=== PATIENT | male | born 1980 | race African-American/Black ===

== ENCOUNTER 2017-07-17 06:50 | Emergency (ER) | payer SELFPAY ==
[~2017-07-17] VITALS: Ht 180.3 cm; Wt 60.0 kg
[2017-07-17 06:54] VITALS: BP 134/63; PULSE 48; RESP 16; TEMP 96.7; O2SAT 98
[2017-07-17] MEDS ORDERED: SODIUM CHLOR 0.9% 1000 ML INJ 1,000 ML IV SCH (07:19)
[2017-07-17] MEDS ORDERED: ONDANSETRON HCL 4 MG/2 ML VIAL IVP ONE (07:30)
[2017-07-17] MEDS ORDERED: SODIUM CHLORIDE 0.9% FLUSH 10 ML FLUSH IV FLUSH PRN (07:30)
[2017-07-17] MEDS ORDERED: FAMOTIDINE 20 MG/2 ML VIAL IV PUSH ONE (07:30)
[2017-07-17 07:40] VITALS: BP 129/65; PULSE 43; RESP 19; O2SAT 97
--- NOTE | 2017-07-17 07:51 | PD ---
HPI Chief Complaint: GI Complaint Time Seen by Provider: 07:19 Travel History International Travel<30 days: No Contact w/Intl Traveler<30days: No Traveled to known affect area: No History of Present Illness HPI Patient is a 36 year old male who comes in complaining of abdominal pain with nausea and vomiting. He says it started at 2:30AM. He says he has "ulcers." He denies seeing any blood in his vomit. He says he is having normal bowel movements. He denies fever or chills. He says he has pain to the middle of his abdomen. He denies any issues with urination. He denies alcohol use. He cannot remember the last thing he ate. He denies any sick contacts. [facility] Past Medical History Medical History: Denies Significant Hx Blood Disorders: No Cancer: No Cardiovascular Problems: No Diminished Hearing: No Endocrine: No Genitourinary: No Immune Disorder: No Musculoskeletal: No Neurologic: No Psychiatric: No Reproductive: No Respiratory: No Past Surgical History Surgical History: No Previous Surgery AICD: No Arteriovenous Shunt: No Insulin Pump: No Joint Replacement: No Pacemaker: No Other Surgery: Yes (HERNIA) Social History Alcohol Use: Yes (socially) Tobacco Use: Yes (1/2 PPD) Substance Use: No Allergies-Medications (Allergen,Severity, Reaction): Coded Allergies: No Known Allergies (Verified , 04/29/15) Reported Meds & Prescriptions Reported Meds & Active Scripts Active No Active Prescriptions or Reported Medications Review of Systems Except as stated in HPI: all other systems reviewed are Neg General / Constitutional: No: Fever HENT: No: Headaches, Lightheadedness Cardiovascular: No: Chest Pain or Discomfort Respiratory: No: Shortness of Breath Gastrointestinal: Positive: Nausea, Vomiting, Abdominal Pain, No: Diarrhea Genitourinary: No: Dysuria Musculoskeletal: No: Myalgias, Weakness Skin: No Rash, No Change in Pigmentation Neurologic: No: Weakness, Dizziness Physical Exam Narrative GENERAL: Awake and alert, in no acute distress. SKIN: Focused skin assessment warm/dry. HEAD: Atraumatic. Normocephalic. EYES: Pupils equal and round. No scleral icterus. ENT: Mucous membranes pink and moist. NECK: Trachea midline. No JVD. CARDIOVASCULAR: Regular rate and rhythm. No murmur appreciated. RESPIRATORY: No accessory muscle use. Clear to auscultation. Breath sounds equal bilaterally. GASTROINTESTINAL: Abdomen soft, nondistended. Tender to palpation of the epigastric area. No rebound or guarding. MUSCULOSKELETAL: No obvious deformities. No clubbing. No cyanosis. No edema. NEUROLOGICAL: Awake and alert. No obvious cranial nerve deficits. Motor grossly within normal limits. Normal speech. PSYCHIATRIC: Appropriate mood and affect; insight and judgment normal. Data Data Last Documented VS Vital Signs Date Time Temp Pulse Resp B/P (MAP) Pulse Ox O2 Delivery O2 Flow Rate FiO2 07/17/17 07:40 43 19 129/65 (86) 97 Room Air 07/17/17 06:54 96.7 Orders Orders Complete Blood Count With Diff (07/17/17 07:19) Comprehensive Metabolic Panel (07/17/17 07:19) Lipase (07/17/17 07:19) Urinalysis - C+S If Indicated (07/17/17 07:19) Iv Access Insert/Monitor (07/17/17 07:19) Ecg Monitoring (07/17/17 07:19) Oximetry (07/17/17 07:19) Ondansetron Inj (Zofran Inj) (07/17/17 07:30) Sodium Chlor 0.9% 1000 Ml Inj (Ns 1000 M (07/17/17 07:19) Sodium Chloride 0.9% Flush (Ns Flush) (07/17/17 07:30) Famotidine Inj (Pepcid Inj) (07/17/17 07:30) Metoclopramide Inj (Reglan Inj) (07/17/17 08:15) Ct Abd/Pel W Iv Contrast(Rout) (07/17/17 ) Diphenhydramine Inj (Benadryl Inj) (07/17/17 09:00) Iohexol 350 Inj (Omnipaque 350 Inj) (07/17/17 09:44) Labs Laboratory Tests Test 07/17/17 07:30 07/17/17 10:00 White Blood Count 12.7 TH/MM3 Red Blood Count 4.42 MIL/MM3 Hemoglobin 14.5 GM/DL Hematocrit 43.8 % Mean Corpuscular Volume 99.3 FL Mean Corpuscular Hemoglobin 32.8 PG Mean Corpuscular Hemoglobin Concent 33.1 % Red Cell Distribution Width 14.1 % Platelet Count 287 TH/MM3 Mean Platelet Volume 9.0 FL Neutrophils (%) (Auto) 78.4 % Lymphocytes (%) (Auto) 13.9 % Monocytes (%) (Auto) 6.1 % Eosinophils (%) (Auto) 0.9 % Basophils (%) (Auto) 0.7 % Neutrophils # (Auto) 9.9 TH/MM3 Lymphocytes # (Auto) 1.8 TH/MM3 Monocytes # (Auto) 0.8 TH/MM3 Eosinophils # (Auto) 0.1 TH/MM3 Basophils # (Auto) 0.1 TH/MM3 CBC Comment DIFF FINAL Differential Comment Blood Urea Nitrogen 10 MG/DL Creatinine 1.16 MG/DL Random Glucose 168 MG/DL Total Protein 7.6 GM/DL Albumin 3.8 GM/DL Calcium Level 9.7 MG/DL Alkaline Phosphatase 58 U/L Aspartate Amino Transf (AST/SGOT) 27 U/L Alanine Aminotransferase (ALT/SGPT) 23 U/L Total Bilirubin 0.3 MG/DL Sodium Level 143 MEQ/L Potassium Level 4.0 MEQ/L Chloride Level 107 MEQ/L Carbon Dioxide Level 29.0 MEQ/L Anion Gap 7 MEQ/L Estimat Glomerular Filtration Rate 87 ML/MIN Lipase 64 U/L Urine Color LIGHT-YELLOW Urine Turbidity HAZY Urine pH 8.5 Urine Specific Speer 1.029 Urine Protein NEG mg/dL Urine Glucose (UA) NEG mg/dL Urine Ketones NEG mg/dL Urine Occult Blood NEG Urine Nitrite NEG Urine Bilirubin NEG Urine Urobilinogen LESS THAN 2.0 MG/DL Urine Leukocyte Esterase NEG Urine RBC LESS THAN 1 /hpf Urine WBC 2 /hpf Urine Amorphous Sediment FEW Microscopic Urinalysis Comment CULT NOT INDICATED MDM Medical Decision Making Medical Screen Exam Complete: Yes Emergency Medical Condition: Yes Medical Record Reviewed: Yes Differential Diagnosis Gastritis versus gastroenteritis versus pancreatitis versus cholecystitis Narrative Course Patient is a 36-year-old male comes in complaining of abdominal pain with nausea and vomiting. Exam shows tenderness to the epigastric area. IV established, labs sent. Labs show no acute abnormality. CT abdomen and pelvis show no acute abnormalities. Patient given Zofran, Reglan, Benadryl. He did stop vomiting. He is able to drink without vomiting. He'll be discharged with a prescription for Zofran. He is advised to drink plenty of fluids. Advised to eat a bland diet if he is hungry. Advised to follow-up with his doctor. Advised to return to the ED as needed for any worsening symptoms. Diagnosis Primary Impression: Nausea & vomiting Qualified Codes: R11.2 - Nausea with vomiting, unspecified Additional Impression: Abdominal pain Qualified Codes: R10.13 - Epigastric pain Patient Instructions: Abdominal Pain (ED), Acute Nausea and Vomiting (ED), General Instructions Additional Instructions: Follow-up care doctor. Drink plenty of fluids. Eat a bland diet. Take Zofran as needed for nausea. Return to the ED as needed for any worsening symptoms. Scripts Ondansetron Odt (Zofran Odt) 4 Mg Tab 4 MG SL Q6HR Y for Nausea/Vomiting, #12 TAB 0 Refills Prov: Jenn Khan MD 07/17/17 Disposition: 01 DISCHARGE HOME Condition: Stable Jenn Khan MD Jul 17, 2017 07:51
[2017-07-17 08:14] LABS: AUTOMATED NEUTROPHIL # 9.9 TH/MM3 (1.8-7.7); BASOPHIL # 0.1 TH/MM3 (0-0.2); BASOPHIL % 0.7 % (0.0-2.0); EOSINOPHIL # 0.1 TH/MM3 (0-0.4); EOSINOPHIL % 0.9 % (0.0-4.0); HEMATOCRIT 43.8 % (39.0-51.0); HEMO FLAGS DIFF FINAL; LYMPH % 13.9 % (9.0-44.0); LYMPHOCYTE # 1.8 TH/MM3 (1.0-4.8); MEAN CELL VOLUME 99.3 FL (80.0-100.0); MEAN CORPUSCULAR HEMOGLOBIN 32.8 PG (27.0-34.0); MEAN CORPUSCULAR HGB CONC 33.1 % (32.0-36.0); MONO % 6.1 % (0.0-8.0); NEUT % 78.4 % (16.0-70.0); PLATELET COUNT 287 TH/MM3 (150-450); RED BLOOD COUNT 4.42 MIL/MM3 (4.50-5.90); RED CELL DISTRIBUTION WIDTH 14.1 % (11.6-17.2); WHITE BLOOD COUNT 12.7 TH/MM3 (4.0-11.0)
[2017-07-17] MEDS ORDERED: METOCLOPRAMIDE INJ 10 MG in SODIUM CHLORIDE 0.9% INJ 50 ML IV ONE (08:15)
[2017-07-17 08:45] LABS: ALKALINE PHOSPHATASE 58 U/L (45-117); TOTAL BILIRUBIN ADULT 0.3 MG/DL (0.2-1.0)
[2017-07-17 08:47] LABS: ALT (GPT) 23 U/L (12-78); ANION GAP 7 MEQ/L (5-15); AST (GOT) 27 U/L (15-37); BLOOD UREA NITROGEN 10 MG/DL (7-18); CHLORIDE 107 MEQ/L (98-107); GLOMERULAR FILTRATION RATE 87 ML/MIN (>89); SODIUM (NA) 143 MEQ/L (136-145)
[2017-07-17] MEDS ORDERED: diphenhydrAMINE HCL 50 MG/ML VIAL IV PUSH ONE (09:00)
[2017-07-17] MEDS ORDERED: IOHEXOL 350 MG/ML 10 ML VIAL (for RAD DIAG) IVCONTRAST ONE (09:44)
--- NOTE | 2017-07-17 10:01 | RADRPT ---
EXAM DATE/TIME: 07/17/2017 09:38 [facility] COMPARISON: CT ABDOMEN & PELVIS W CONTRAST, April 29, 2015, 9:24. CT ABDOMEN & PELVIS W CONTRAST, March 31, 2015, 14:21. INDICATIONS : Nausea and vomiting IV CONTRAST: 96 cc Omnipaque 350 (iohexol) IV ORAL CONTRAST: No oral contrast ingested. RADIATION DOSE: 4.51 CTDIvol (mGy) MEDICAL HISTORY : None SURGICAL HISTORY : None. ENCOUNTER: Initial ACUITY: 1 day PAIN SCALE: 5/10 LOCATION: diffuse abdomen TECHNIQUE: Volumetric scanning of the abdomen and pelvis was performed. Using automated exposure control and ad justment of the mA and/or kV according to patient size, radiation dose was kept as low as reasonably achievable to obtain optimal diagnostic quality images. DICOM format image data is available electro nically for review and comparison. FINDINGS: LOWER LUNGS: The visualized lower lungs are clear. LIVER: Homogeneous density without dilation of the biliary tree. Several arterial enhancing lesions are seen a left lobe measuring 9, 15 and 14 mm. These are stable likely benign. No calcified gallstones. SPLEEN: Normal size without lesion. PANCREAS: Within normal limits. KIDNEYS: Normal in size and shape. There is no mass, stone or hydronephrosis. ADRENAL GLANDS: Within normal limits. VASCULAR: There is no aortic aneurysm. BOWEL/MESENTERY: The stomach and small bowel demonstrate no acute abnormality. Nondistention of the large bowel versu s less likely wall thickening. There is no free intraperitoneal air or fluid. ABDOMINAL WALL: Within normal limits. RETROPERITONEUM: There is no lymphadenopathy. BLADDER: No wall thickening or mass. REPRODUCTIVE: Within normal limits. INGUINAL: There is no lymphadenopathy or hernia on the left. Fat containing right inguinal hernia. MUSCULOSKELETAL: Within normal limits for patient age. CONCLUSION: 1. No bowel obstruction. 2. Nondistention versus less likely wall thickening of the colon. 3. Arterial enhancing hepatic lesions, likely benign and stable. 4. Fat-containing right inguinal hernia. 5. No acute inflammatory process. Chalo Berumen MD on July 17, 2017 at 9:51 Board Certified Radiologist. This report was verified electronically.
[2017-07-17 11:21] LABS: BLOOD, URINE NEG (NEG); COMMENT (UR) CULT NOT INDICATED; CULTURE IF INDICATED CULT NOT INDICATED; GLUCOSE,URINE NEG (NEG); KETONE, URINE NEG (NEG); NITRITE,URINE NEG (NEG); PH, URINE 8.5 (5.0-8.5); URINE COLOR LIGHT-YELLOW (YELLW/STRAW)
[2017-07-17] MEDS ORDERED: ZOFR4TAB3 SL (11:44)
== END 2017-07-17 12:00 | disposition home or self-care (01) ==
LOC: NEPE 06:50
DX: R11.2 Nausea with vomiting, unspecified (principal); R10.13 Epigastric pain; Z72.0 Tobacco use
CPT/HCPCS: 74177; 80053; 81001; 83690; 85025; 96365; 96375; 99285; J1200; J2405; J2765; J7030; Q9967

== ENCOUNTER 2018-03-28 10:27 | Emergency (ER) | payer SELFPAY ==
[~2018-03-28] VITALS: Ht 177.8 cm; Wt 66.5 kg
[~2018-03-28 10:27] MED LIST: ZOFR4TAB3 SL
[2018-03-28 10:37] VITALS: BP 118/58; PULSE 46; PULSE 54; RESP 16; TEMP 98.1; O2SAT 100
[2018-03-28] MEDS ORDERED: IBUP1TAB7 PO (12:12)
[2018-03-28] MEDS ORDERED: ROBA500T PO (12:12)
--- NOTE | 2018-03-28 12:13 | PD ---
HPI Chief Complaint: Pain: Acute or Chronic Time Seen by Provider: 11:48 Travel History International Travel<30 days: No Contact w/Intl Traveler<30days: No Traveled to known affect area: No History of Present Illness HPI 37-year-old male presents to the emergency department with complaint of lower back pain and right upper back pain since last night after work. 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 When he woke up this morning his pain was worse. Denies traumatic injury. He denies encopresis, incontinence, saddle anesthesias. Reports paresthesias to the right hand, otherwise denies paresthesias to all other extremities, loss of sensation, decreased range of motion, decreased strength to all extremities. Denies IV drug use or cancer. Denies fever, vomiting, abdominal pain, change in urine or stool. Has not taken any medication or try any treatments to alleviate his symptoms. Rates pain 10/10. Says it was 8/10 earlier and has worsened since he has been laying in the ER bed waiting to be seen. Worse with movement and too much rest; says when he rested much feels like he tightens up more. No known relieving factors. No primary care provider. No known allergies. Denies significant past medical history. Has no other medical complaints. No other modifying factors or associated signs and symptoms. PFSH Past Medical History Blood Disorders: No Cancer: No Cardiovascular Problems: No Diminished Hearing: No Endocrine: No Genitourinary: No Immune Disorder: No Musculoskeletal: No Neurologic: No Psychiatric: No Reproductive: No Respiratory: No Past Surgical History AICD: No Arteriovenous Shunt: No Insulin Pump: No Joint Replacement: No Pacemaker: No Other Surgery: Yes (HERNIA) Social History Alcohol Use: Yes (socially) Tobacco Use: Yes (1/2 PPD) Substance Use: No Allergies-Medications (Allergen,Severity, Reaction): Coded Allergies: No Known Allergies (Verified , 04/29/15) Reported Meds & Prescriptions Reported Meds & Active Scripts Active Ibuprofen 800 Mg Tab 800 Mg PO Q6HR PRN Robaxin (Methocarbamol) 500 Mg Tab 500 Mg PO QID PRN Zofran Odt (Ondansetron Odt) 4 Mg Tab 4 Mg SL Q6HR PRN Review of Systems Except as stated in HPI: all other systems reviewed are Neg Physical Exam Narrative GENERAL: Well-nourished, well-developed black male patient, in no acute distress ; afebrile, nontoxic-appearing SKIN: Warm and dry. HEAD: Atraumatic. Normocephalic. EYES: Pupils equal and round. No scleral icterus. No injection or drainage. ENT: Mucosa pink and moist. Airway patent. NECK: Moving freely. Trachea midline. CARDIOVASCULAR: Regular rate. RESPIRATORY: No accessory muscle use. GASTROINTESTINAL: Flat. MUSCULOSKELETAL: Bilateral lower extremities supple and non-tense with 2+ pedal pulses and sensory intact; with full range of motion and 5/5 strength. 2 + DTRs bilaterally. Active dorsiflexion and extension of bilateral feet. Bilateral straight leg raise is negative for low back pain. Right upper extremity is with full range of motion and greater than 90 abduction of the right shoulder. ambulatory in room with normal gait. Sitting up in bed at 90. No obvious deformities. No clubbing. No cyanosis. No edema. BACK: No midline point tenderness on palpation of the lumbar or thoracic spine. Tenderness on palpation of bilateral lumbar paraspinal and iliosacral area. reproducible tenderness to the right upper trapezius muscle of the upper back/ shoulder area. No obvious deformities. NEUROLOGICAL: Awake and alert. Oriented 3. No obvious cranial nerve deficits. Motor grossly within normal limits. Normal speech. Moves all extremities. 5/5 strength to all extremities. Sensory intact. PSYCHIATRIC: Appropriate mood and affect; insight and judgment normal. Data Data Last Documented VS Vital Signs Date Time Temp Pulse Resp B/P (MAP) Pulse Ox O2 Delivery O2 Flow Rate FiO2 03/28/18 10:37 98.1 54 16 118/58 (78) 100 Orders Orders Ketorolac Inj (Toradol Inj) (03/28/18 12:15) Orphenadrine Inj (Norflex Inj) (03/28/18 12:15) Ed Discharge Order (03/28/18 12:10) [facility] Medical Decision Making Medical Screen Exam Complete: Yes Emergency Medical Condition: Yes Medical Record Reviewed: Yes Differential Diagnosis Muscle strain, muscle spasm, low back strain Narrative Course 37-year-old male with strain of right trapezius muscle and low back strain. Denies traumatic injury. Reports heavy lifting all day at work yesterday. Denies encopresis, incontinence, saddle anesthesias. Denies IV drug use or cancer. No midline tenderness on palpation of the lumbar or thoracic spine. Ambulatory in the room with a normal gait. Toradol and Norflex administered in the ER. Robaxin and ibuprofen prescribed for home. Instructed patient to follow up with primary care provider. Patient verbalizes understanding and agreement with treatment plan. Patient is medically cleared and stable for discharge. Discussed reasons to return to the emergency department. Patient agrees with treatment plan. The patients vital signs are stable and the patient is stable for outpatient follow-up and treatment. Patient discharged home, stable and in no acute distress. Diagnosis Primary Impression: Strain of right trapezius muscle Qualified Codes: S46.811A - Strain of other muscles, fascia and tendons at shoulder and upper arm level, right arm, initial encounter Additional Impression: Strain of fascia of lower back Referrals: [facility] Primary Care Physician Patient Instructions: General Instructions, Low Back Strain (ED), Muscle Spasm (ED), Muscle Strain (ED) Departure Forms: Tests/Procedures, Work Release Enter return to work date: Mar 30, 2018 Additional Instructions: Tylenol or ibuprofen as directed and as needed for pain Robaxin as prescribed and as needed for muscle spasms Heating pad and/or ice to affected area to reduce pain Avoid aggravating activities; increase activity as tolerated Follow-up with primary care provider Return to emergency department immediately with worsening of symptoms Med/Other Pt SpecificInfo: Prescription(s) given Scripts Ibuprofen (Ibuprofen) 800 Mg Tab 800 MG PO Q6HR Y for PAIN, #30 TAB 0 Refills Prov: Ofelia Dumont 03/28/18 Methocarbamol (Robaxin) 500 Mg Tab 500 MG PO QID Y for MUSCLE SPASM, #30 TAB 0 Refills Prov: Ofelia Dumont 03/28/18 Disposition: 01 DISCHARGE HOME Condition: Stable Ofelia Dumont Mar 28, 2018 12:13
[2018-03-28] MEDS ORDERED: ORPHENADRINE INJ 60 MG/2 ML AMP IM ONE (12:15)
[2018-03-28] MEDS ORDERED: KETOROLAC TROMETHAMINE 60 MG/2 ML (IM) VIAL IM ONE (12:15)
== END 2018-03-28 12:47 | disposition home or self-care (01) ==
LOC: NEPK 10:27
DX: S46.911A Strain of unspecified muscle, fascia and tendon at shoulder and upper arm level, right arm, initial encounter (principal); S39.012A Strain of muscle, fascia and tendon of lower back, initial encounter; X50.0XXA Overexertion from strenuous movement or load, initial encounter; X50.3XXA Overexertion from repetitive movements, initial encounter; Y93.H3 Activity, building and construction
CPT/HCPCS: 96372; 99283; J1885; J2360